=== PATIENT | female | born 1960 | race African-American/Black ===

== ENCOUNTER 2023-05-13 13:47 | Emergency (ER) | payer OTHER, SELFPAY ==
[2023-05-13 13:47] VITALS: BP 93/65; PULSE 82; RESP 20; TEMP 36.4; O2SAT 99
[2023-05-13 14:51] LABS: Basophils Percent Auto 0.9 % (0.2-1.2); Eosinophils Absolute Auto 0.3 K/mm3 (0-0.3); Eosinophils Percent Auto 8.8 % (0-4.4); Hematocrit 41.8 % (37.0-47.0); Hemoglobin 12.8 g/dL (12.0-15.0); Immature Granulocyte Absolute 0.01 K/mm3 (0.00-0.031); Immature Granulocyte Percent A 0.3 % (0-0.5); Lymphocytes Absolute Auto 1.63 K/mm3 (0.9-3.2); Lymphocytes Percent Auto 51.4 % (18.3-44.2); Mean Corpuscular HGB Conc 30.6 g/dl (32-36); Mean Corpuscular Hemoglobin 25.6 pg (26-34); Mean Corpuscular Volume 83.6 fl (80-100); Mean Platelet Volume 9.5 fl (7.4-10.4); Monocytes Absolute Auto 0.3 K/mm3 (0.1-0.6); Monocytes Percent Auto 10.7 % (2.6-8.5); Neutrophils Absolute Auto 0.9 K/mm3 (1.3-6.7); Neutrophils Percent Auto 27.9 % (45.5-73.1); Platelet Count Result 286 k/mm3 (150-375); Red Cell Distribution Width 19.9 % (11.5-14.5); White Blood Count 3.2 K/mm3 (4.5-10.0)
[2023-05-13] MEDS: SODIUM CHLORIDE 0.9% IV 1,000 ML 999 ML IV CONT (14:52)
[2023-05-13 15:06] LABS: Ethanol < 10 mg/dL (<10)
[2023-05-13 15:28] LABS: Anisocytosis 1+ (NORMAL); Ovalocytes 1+ (NORMAL); Platelet Estimate Adequate (Adequate); Schistocytes None Seen (NORMAL); Target Cells 1+ (NORMAL)
--- NOTE | 2023-05-13 15:35 | PC.NURSE ---
Madi, daughter, contacted at [phone] per patient request. Madi was made aware by [facility] that her mom was transported to our facility, Madi to come visit patient.
[2023-05-13 16:25] VITALS: BP 111/85; PULSE 66; RESP 20; O2SAT 99
[2023-05-13 16:48] LABS: Appearance Urine Clear (Clear); Bacteria Urine None Seen /hpf; Bilirubin Urine Negative (Negative); Blood Urine Negative (Negative); Color Urine Dark Yellow (Yellow); Glucose Urine UA Negative (Negative); Ketones Urine Trace mg/dL (Negative); Leukocyte Esterase Ur Trace LEU/UL (Negative); Nitrate Urine Negative (Negative); Non Pathogenic Casts 0-2; Protein Urine Negative (Negative); RBC Urine 0-2 /hpf (0-2); Specific Grav Ur 1.026 (1.001-1.035); Squamous Epithelial Cell Urine Occasional /hpf (Few); pH Urine 6.5 (5.0-9.0)
[2023-05-13 16:52] LABS: Add Urine Microscopic? YES
[2023-05-13 17:01] LABS: Amphetamine Screen Urine Negative (Negative); Barbiturate Screen Urine Negative (Negative); Benzodiazepines Screen Urine Negative (Negative); Cannabinoid Screen Urine Negative (Negative); Cocaine Screen Urine Negative (Negative); Methadone Screen Urine Negative (Negative); Opiate Screen Urine Negative (Negative); Phencyclidine Screen Urine Negative (Negative)
--- NOTE | 2023-05-13 17:50 | ED.GENADULT ---
HPI - General Adult General Chief complaint: Psychiatric Symptoms Stated complaint: outburst at NH Time Seen by Provider: 05/13/23 13:53 History of Present Illness HPI narrative: Patient is a 62-year-old female who presents ER to be evaluated for agitation. 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 This was performed at [facility]. Apparently while smoking a cigarette the patient was talking to another person in the senior care who told her to go back into the dark. She took this as a reference to the color of her skin in became quite agitated and got in a fight. The senior care then sent her here for evaluation. Patient has no complaints at this time. Patient has history of HIV and reports a undetectable viral load. Related Data Allergies Allergy/AdvReac Type Severity Reaction Status Date / Time No Known Allergies Allergy Verified 05/13/23 13:57 Review of Systems Review of Systems: All systems reviewed & are unremarkable except as noted in HPI and below Constitutional: Constitutional: Reports no additional constitutional complaints ENT: Reports system reviewed and no additional complaints, except as documented Cardiovascular: Cardiovascular: Reports no additional cardiovascular complaints Respiratory: Respiratory: Reports no additional respiratory complaints Gastrointestinal: Gastrointestinal: Reports no additional gastrointestinal complaints Integumentary/Breasts: Skin/Breast: Reports system reviewed and no additional complaints, except as docu Neurologic: Reports system reviewed and no additional complaints, except as documented PMFSH Past Medical History Medical History (Updated 05/13/23 @ 17:56 by Min Bassett MD) Amputation at midfoot HIV positive Exam Narrative: GENERAL: Well-appearing, well-nourished, and in no acute distress. HEAD: Normocephalic, atraumatic. EYES: PERRL and EOMI. ENT: Mucous membranes moist. CHEST: Clear to auscultation. No respiratory distress. HEART: Regular rate and rhythm. Normal peripheral pulses. ABDOMEN: Soft, nontender, nondistended. EXTREMITIES: Normal range of motion. No edema.. The left clot the way the from emboli. The right mid foot has been amputated and there is slight dehiscence of the wound without drainage. Edges are dry. SKIN: Warm, dry, no rash. NEURO: Alert and oriented x3. PSYCH: Normal mood and affect. Course Course Emergency Course: Patient is quite pleasant interacts appropriately. She has no complaints at this time. She has no SI/HI. She is felt to be appropriate for discharge back to facility. Vital Signs Vital signs: Vital Signs Temperature 97.5 F L 05/13/23 13:47 Pulse Rate 82 05/13/23 13:47 Respiratory Rate 20 05/13/23 13:47 Blood Pressure 93/65 L 05/13/23 13:47 Pulse Oximetry 99 05/13/23 13:47 Oxygen Delivery Room Air 05/13/23 13:47 Temperature 97.5 F L 05/13/23 13:47 Pulse Rate 66 05/13/23 16:25 Respiratory Rate 20 05/13/23 16:25 Blood Pressure 111/85 05/13/23 16:25 Pulse Oximetry 99 05/13/23 16:25 Oxygen Delivery Room Air 05/13/23 13:47 Medical Decision Making Vital Signs Vital Signs: Vital Signs Temperature 97.5 F L 05/13/23 13:47 Pulse Rate 82 05/13/23 13:47 Respiratory Rate 20 05/13/23 13:47 Blood Pressure 93/65 L 05/13/23 13:47 Pulse Oximetry 99 05/13/23 13:47 Oxygen Delivery Room Air 05/13/23 13:47 Temperature 97.5 F L 05/13/23 13:47 Pulse Rate 66 05/13/23 16:25 Respiratory Rate 20 05/13/23 16:25 Blood Pressure 111/85 05/13/23 16:25 Pulse Oximetry 99 05/13/23 16:25 Oxygen Delivery Room Air 05/13/23 13:47 Lab Data 05/13/23 14:44 05/13/23 17:21 Labs: Lab Results 05/13/23 05/13/23 05/13/23 Range/Units 14:44 15:08 16:33 WBC 3.2 L (4.5-10.0) K/mm3 RBC 5.00 (4.2-5.4) M/mm3 Hgb 12.8 (12.0-15.0) g/dL Hct 41.
[2023-05-13 18:02] LABS: Alanine Aminotransferase 19 U/L (6-35); Albumin Level 3.8 g/dL (3.5-5.1); Alkaline Phosphatase 93 U/L (38-126); Anion Gap 8 mmol/L (8-16); Aspartate Amino Transferase 29 U/L (14-36); Bilirubin,Total 0.4 mg/dL (0.2-1.3); Blood Urea Nitrogen 19 mg/dL (7-17); Calcium 8.8 mg/dL (8.4-10.2); Carbon Dioxide 27 mmol/L (22-30); Chloride 106 mmol/L (98-107); Estimated CRCL calculation 63 ml/min; Estimated Glomerular Filt Rate > 60; Glucose 121 mg/dL (65-110); Potassium 4.5 mmol/L (3.4-5.0); Sodium 141 mmol/L (137-145)
--- NOTE | 2023-05-13 19:16 | PC.NURSE ---
Attempted to call report for patient to [facility] twice.
== END 2023-05-13 19:10 ==
PROVIDERS: Emergency Provider Emergency Medicine
DX: R45.4 Irritability and anger (principal); F17.210 Nicotine dependence, cigarettes, uncomplicated; Z21 Asymptomatic human immunodeficiency virus [HIV] infection status; Z89.431 Acquired absence of right foot
CPT/HCPCS: 36415; 80053; 80307; 81001; 84443; 85025; 87086; 96360; 96361; 99283; J7030